=== PATIENT | female | born 1995 | race Two or more races ===

== ENCOUNTER 2020-11-07 13:07 | Emergency (ER) | payer MEDICAID ==
[~2020-11-07] VITALS: Ht 175.3 cm; Wt 58.0 kg
[2020-11-07 14:52] LABS: BASOPHILS % 0.7 % (0.0-2.0); EOSINOPHILS % 3.1 % (0.0-5.0); HEMATOCRIT. 42.4 % (36.0-48.0); HEMOGLOBIN. 14.1 g/dL (12.0-16.0); LYMPHOCYTES % 28.6 % (20.0-50.0); MEAN CORPUSCULAR HEMOGLOBIN 30.9 pg (28.0-32.0); MEAN CORPUSCULAR VOLUME 92.7 fL (81.0-99.0); MEAN PLATELET VOLUME 9.8 fl (7.4-10.4); MONOCYTES % 6.6 % (2.0-8.0); PLATELET 170 x1000/uL (130-400); RED BLOOD CELL COUNT 4.57 mill/uL (4.2-5.4); RED CELL DISTRIBUTION WIDTH 14.4 % (11.6-14.6)
[2020-11-07 14:54] LABS: CHLORIDE 110 mEq/L (98-107)
[2020-11-07 15:00] LABS: PROTHROMBIN TIME 10.9 sec (9.6-11.0)
[2020-11-07 15:03] LABS: CLARITY URINE CLEAR (CLEAR); COLOR URINE YELLOW (YELLOW); KETONES URINE NEGATIVE (NEGATIVE); LEUKOCYTE ESTERASE URINE NEGATIVE (NEGATIVE); NITRITE URINE NEGATIVE (NEGATIVE); OCCULT BLOOD URINE 2+ (NEGATIVE); PROTEIN URINE NEGATIVE (NEGATIVE); SPECIFIC GRAVITY URINE 1.003 (1.005-1.030); UROBILINOGEN URINE 0.2 E.U./dL (0.2-1.0)
[2020-11-07 16:12] LABS: *AMPHETAMINES SCREEN URINE NEGATIVE (NEGATIVE); *BARBITURATES SCREEN URINE NEGATIVE (NEGATIVE); *BENZODIAZEPINES SCREEN URINE NEGATIVE (NEGATIVE); *COCAINE SCREEN URINE NEGATIVE (NEGATIVE); METHADONE URINE SCREEN NEGATIVE (NEGATIVE)
[2020-11-07 16:13] LABS: OPIATES URINE SCREEN NEGATIVE (NEGATIVE); PHENCYCLIDINE URINE SCREEN NEGATIVE (NEGATIVE)
[2020-11-07 16:20] LABS: CANNABINOID URINE SCREEN PRESUMTIVE POSITIVE (NEGATIVE)
[2020-11-07] MEDS ORDERED: [UNRECOGNIZED DRUG - CODE] MT (17:06)
[2020-11-07 17:19] VITALS: BP 112/52
== END 2020-11-07 17:22 | disposition home or self-care (01) ==
LOC: ER 13:31
DX: B71.9 Cestode infection, unspecified (principal); E87.8 Other disorders of electrolyte and fluid balance, not elsewhere classified; F12.10 Cannabis abuse, uncomplicated; E86.0 Dehydration; E16.2 Hypoglycemia, unspecified; D64.9 Anemia, unspecified; K21.9 Gastro-esophageal reflux disease without esophagitis; Z87.09 Personal history of other diseases of the respiratory system; Z87.440 Personal history of urinary (tract) infections; Z79.899 Other long term (current) drug therapy
CPT/HCPCS: 36415; 80053; 80305; 81003; 81025; 82270; 83690; 85025; 85610; 87177; 87209; 93005; 99284; Z7610